=== PATIENT | female | born 1980 | race American Indian/Alaskan Native ===

== ENCOUNTER 2018-01-04 09:08 | Inpatient (IN) | payer MEDICAID ==
[2018-01-04] MEDS ORDERED: PEPCID IV NR (09:40)
[2018-01-04] MEDS ORDERED: BICITRA PO NR (09:40)
[2018-01-04] MEDS ORDERED: REGLAN IV ONE (09:40)
[2018-01-04] MEDS ORDERED: ANCEF/STERILE WATER 2 GM/20 ML 2 GM/20 ML SYRINGE IV ONE ×2 (09:45→10:01)
[2018-01-04] MEDS ORDERED: SUBLIMAZE ONE (10:00)
[2018-01-04] MEDS ORDERED: PITOCin/NS 20 UNIT/1000ML DRIP 20 UNITS/1,000 ML BAG IV SCH ×2 (10:00→14:44)
[2018-01-04] MEDS: LACTATED RINGERS 1,000 ML IV SCH ×2 (10:05→10:35)
[2018-01-04 10:19] LABS: Basophils % (Auto) 0.4 % (0.0-1.8); Eosinophils % (Auto) 0.6 % (0.0-4.3); Hemoglobin 12.3 gm/dl (10.1-14.3); Lymphocytes # (Auto) 1.9 K/mm3 (1.2-5.4); Lymphocytes % (Auto) 34.4 % (13.4-35.0); Mean Corpuscular HGB Conc 35 % (30-34); Mean Corpuscular Hemoglobin 34 pg (28-32); Mean Corpuscular Volume 97 fl (79-97); Monocytes # (Auto) 0.3 K/mm3 (0.0-0.8); Monocytes % (Auto) 5.3 % (0.0-7.3); Platelet Count 108 K/mm3 (140-440); Red Blood Count 3.63 M/mm3 (3.65-5.03); Red Cell Distribution Width 14.1 % (13.2-15.2)
[2018-01-04] MEDS ORDERED: BENADRYL ONE (10:20)
--- NOTE | 2018-01-04 10:25 | History and Physical Report ---
<JAKE BUNCH Norris - Last Filed: 01/04/18 10:21> History of Present Illness Date of examination: 01/04/18 Date of admission: 01/04/18 09:09 Chief complaint: labor contractions @ 38+3 wks, no srom or vag bleeding. Scheduled repeat c/s History of present illness: EDC Calculations LMP: 01/15/2018 Past History : 5 Term Births: 2 Premature Births: 0 Living Children: 2 Para: 2 Mult. Births: 0 Prev : 2 Prev. attempt? 0 Aborta: 2 Elect. Ab: 1 Spont. 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 of genital herpes: yes Varicella/Chicken Pox Status: Previous Disease TB Risk: no Genetic History ADVANCED MATERNAL AGE Congenital Heart Defect: Mom: no Dad: no Gwen Disease: Mom: no Dad: no Thalassemia Mom: no Dad: no Neural Tube Defect Mom: no Dad: no Down's Syndrome Mom: no Dad: no Nicolas-Sachs Mom: no Dad: no Sickle Cell Disease/Trait Mom: no Dad: no Hemophilia Mom: no Dad: no Muscular Dystrophy Mom: no Dad: no Cystic Fibrosis Mom: no Dad: no Bridget Chorea Mom: no Dad: no Mental Retardation Mom: no Dad: no Fragile X Mom: no Dad: no Other Genetic/Chromosomal Disorder Mom: no Dad: no Child w/other defect Mom: no Dad: no Enviromental Exposures Xray Exposure: no Medication, drug, or alcohol use since LMP: no Chemical/Other Exposure: no Exposure to Cat Liter: no Hx of Parvovirus (Fifth Disease): no Occupational Exposure to Children: none Active Medications (reviewed today): None Current Allergies (reviewed today): No known allergies Past History Past Medical History: other (see HPI) Past Surgical History: other (see HPI) - Obstetrical History Expected Date of Delivery: 01/15/18 Actual Gestation: 38 Week(s) 3 Day(s) : 5 Para: 2 Hx # Term Pregnancies: 2 Number of Pregnancies: 0 Spontaneous Abortions: 1 Induced : 1 Number of Living Children: 2 Medications and Allergies Allergies Allergy/AdvReac Type Severity Reaction Status Date / Time No Known Allergies Allergy Unverified 01/04/18 09:23 Home Medications Medication Instructions Recorded Confirmed Last Taken Type No Known Home Medications [No 01/04/18 01/04/18 Unknown History Reported Home Medications] Active Meds: Active Medications Citric Acid/Sodium Citrate (Bicitra) 30 ml PO ONCE NR Stop: 01/04/18 10:30 Famotidine (Pepcid) 20 mg IV ONCE NR Stop: 01/04/18 10:30 Lactated Ringer's (Lactated Ringers) 1,000 mls @ 2,250 mls/hr IV PREOP ROD Stop: 01/05/18 10:27 Oxytocin/Sodium Chloride (Pitocin/Ns 20 Unit/1000ml Drip) 20 units in 1,000 mls @ 0 mls/hr IV TITR ROD PRN Reason: As Directed Review of Systems All systems: negative - Vital Signs Vital signs: Vital Signs Pulse BP 99 H 114/78 01/04/18 09:30 01/04/18 09:30 Temp Pulse Resp BP Pulse Ox 99 H 114/78 01/04/18 09:30 01/04/18 09:30 Results Result Diagrams: 01/04/18 09:50 Abnormal lab results 01/04/18 Range/Units 09:50 RBC 3.63 L (3.65-5.03) M/mm3 MCH 34 H (28-32) pg MCHC 35 H (30-34) % Plt Count 108 L (140-440) K/mm3 All other labs normal. Assessment and Plan 37y/o @ 38+3 weeks, active labor 5cms with regular ctx, prev c/s x 2. Plan to proceed with repeat c/s and tubal. Consent on the chart. Admission orders in EMR. Dr. Jaffe aware and in house. - Patient Problems (1) 38 weeks gestation of Current Visit: Yes Status: Acute (2) Previous section Current Visit: Yes Status: Acute (3) Active labor at term Current Visit: Yes Status: Acute <ROSALVA JAFFE D - Last Filed: 01/04/18 10:28> History of Present Illness Date of admission: 01/04/18 09:09 Medications and Allergies Active Meds: Active Medications Citric Acid/Sodium Citrate (Bicitra) 30 ml PO ONCE NR Stop: 01/04/18 10:30 Famotidine (Pepcid) 20 mg IV ONCE NR Stop: 01/04/18 10:30 Lactated Ringer's (Lactated Ringers) 1,000 mls @ 2,250 mls/hr IV PREOP ROD Stop: 01/05/18 10:27 Oxytocin/Sodium Chloride (Pitocin/Ns 20 Unit/1000ml Drip) 20 units in 1,000 mls @ 0 mls/hr IV TITR ROD PRN Reason: As Directed - Vital Signs Vital signs: Vital Signs Pulse BP 99 H 114/78 01/04/18 09:30 01/04/18 09:30 Temp Pulse Resp BP Pulse Ox 99 H 114/78 01/04/18 09:30 01/04/18 09:30 Results Result Diagrams: 01/04/18 09:50 Abnormal lab results 01/04/18 Range/Units 09:50 RBC 3.63 L (3.65-5.03) M/mm3 MCH 34 H (28-32) pg MCHC 35 H (30-34) % Plt Count 108 L (140-440) K/mm3 All other labs normal. Assessment and Plan Patient presents active labor, 5cm, breech, previous C/S x2 scheduled for repeat C/S with sterilization on Jan 08. Breech presentation by exam. Patient will proceed with c/s delchelsey with possible bilateral salpingectomy for sterilization. Questions answered. Consents reviewed and signed. She voiced understanding as well.
[2018-01-04] MEDS ORDERED: XYLOCAINE MPF 2% ONE ×8 (10:42→10:47)
[2018-01-04] MEDS ORDERED: WATER FOR IRRIG STERILE IR ONE (10:50)
[2018-01-04] MEDS ORDERED: NACL 0.9% IR ONE (10:50)
[2018-01-04] MEDS ORDERED: NEO SYNEPHRINE/NS Syringe(OR USE) IV ONE ×3 (10:55→12:04)
[2018-01-04] MEDS ORDERED: NEO SYNEPHRINE ONE (11:08)
[2018-01-04] MEDS ORDERED: LACTATED RINGERS 1,000 ML ONE (11:37)
--- NOTE | 2018-01-04 12:13 | Operative Report ---
Operative Report Operative Report: Date: 01/04/2018 Preoperative diagnosis: 1. Intrauterine at 38 weeks 2. Active labor 3. Previous delivery 2 4. Desires sterilization 5. Advanced maternal age 6. Breech presentation Postoperative diagnosis: 1. Intrauterine at 38 weeks 2. Active labor 3. Previous delivery 2 4. Desires sterilization 5. Advanced maternal age 6. Breech presentation Procedure: 1. Low transverse section 2. Bilateral salpingectomy for sterilization Surgeon: Julissa Jaffe MD Supervisor Aircraft Cleaning: Symone Jacobo [facility] Anesthesia: Epidural Anesthesiologist: Dr. Kinney Estimated blood loss: 700 mL Urine out: 200 mL Findings: Live born male . Weight 7 pounds 2 oz. Apgars 7 at 1 minute and 9 at 5 minutes. Grossly enlarged uterus, grossly normal tubes and ovaries Procedure: After risk, benefits, complications, consequences and alternatives for th procedure were discussed with patient and consents were reviewed and signed, she was taken to the OR where epidural anesthesia was placed. She was then placed in the left lateral tilt position, and prepped and draped in the usual sterile fashion. Timeout was performed, and an appropriate level of anesthesia was noted, a Pfannenstiel incision was made and extended to the fascia which was incised and extended in the lateral directions. The overlying fascia was sharply dissected away from the underlying rectus muscles in the superior and inferior directions. The midline was entered with blunt and sharp dissection. The vesicouterine fold was incised and with blunt dissection the bladder flap was created. A transverse incision was made in the lower uterine segment and extended in superiolateral direction with finger fractionation. Clear fluid was noted. The infant was delivered from double footling breech position. Mouth and nose were bulb suctioned. Spontaneous cry and excellent tone were noted. Cord was doubly clamped and cut. The was given to /resuscitation team present. The placenta was manually extracted. The uterus was then exteriorized and cleared of any further products of conception or placental tissue. The incision was reapproximated using 0 Vicryl in a running interlocking stitch. Once confirmation was obtained from the patient proceed with sterilization, bilateral salpingectomy was performed using the Bovie. Once hemostasis is noted the same procedure was performed on the left tube. Tisseel was applied to the adnexa to ensure hemostasis. Each fallopian tube was sent to pathology in separate containers. Once hemostasis was noted, the uterus was allowed back into the pelvic cavity. The pelvis was irrigated with warm normal saline. Attention was turned to the adnexa where hemostasis was noted. Tisseel as well as Surgicel was applied to the uterine incision for further hemostasis. Interceed was then placed to prevent adhesions. Then attention was turned to the rectus muscles. Once hemostasis was noted, the fascia was reapproximated using 0 Vicryl and some running stitch. Once hemostasis was noted skin incision was reapproximated using 4-0 Vicryl on a Saw needle in a subcuticular manner. Counts were correct 3. Patient tolerated procedure well state recovery room in stable condition.
--- NOTE | 2018-01-04 12:13 | Anesthesia Consultation ---
Anesthesia Consult and Med Hx Date of service: 01/04/18 - Airway Anesthetic Teeth Evaluation: Good ROM Head & Neck: Adequate Mental/Hyoid Distance: Adequate Mallampati Class: Class I Intubation Access Assessment: Good - Pulmonary Exam CTA: Yes - Cardiac Exam Cardiac Exam: RRR - Pre-Operative Health Status ASA Pre-Surgery Classification: ASA1, Emergency Proposed Anesthetic Plan: Epidural, Spinal - Pulmonary Hx Asthma: No - Cardiovascular System Hx Hypertension: No - Central Nervous System Hx Seizures: No Hx Psychiatric Problems: No - Endocrine Hx Renal Disease: No Hx Hypothyroidism: No Hx Hyperthyroidism: No - Hematic Hx Anemia: No Hx Sickle Cell Disease: No - Other Systems Hx Alcohol Use: No
[2018-01-04] MEDS ORDERED: TORADOL ONE (12:46)
[2018-01-04] MEDS ORDERED: ZOFRAN IV PRN ×2 (13:26→14:44)
[2018-01-04] MEDS ORDERED: PHENERGAN PO PRN (13:26)
[2018-01-04] MEDS ORDERED: PHENERGAN PR PRN ×2 (13:26→14:44)
[2018-01-04] MEDS ORDERED: NARCAN 0.4 MG/1 ML IV PRN ×2 (13:26→14:44)
[2018-01-04] MEDS: MORPHINE IV PRN ×3 (13:38→18:33)
[2018-01-04] MEDS ORDERED: SODIUM CHLORIDE FLUSH SYRINGE 10 ML IV SCH ×2 (14:00→14:44)
[2018-01-04] MEDS ORDERED: fentaNYL-BUPIV 2 MCG/ML-0.125% 200 MCG/100 ML BAG EPIDURAL SCH (14:30)
[2018-01-04] MEDS ORDERED: MORPHINE IV PRN ×2 (14:44→18:17)
[2018-01-04] MEDS ORDERED: LANSINOH TP PRN (14:44)
[2018-01-04] MEDS ORDERED: TYLENOL PR PRN (14:44)
[2018-01-04] MEDS ORDERED: TUCKS PAD TP PRN (14:44)
[2018-01-04] MEDS ORDERED: ANCEF/NS 1 GM/50 ML 1 GM/50 ML BAG IV SCH (14:44)
[2018-01-04] MEDS ORDERED: CYTOTEC PR PRN (14:44)
[2018-01-04] MEDS ORDERED: TYLENOL PO PRN (14:44)
[2018-01-04] MEDS ORDERED: METHERGINE IM PRN (14:44)
[2018-01-04] MEDS ORDERED: HEMABATE IM PRN (14:44)
[2018-01-04] MEDS ORDERED: MYLICON PO PRN (14:44)
[2018-01-04] MEDS: D5LR 1,000 ML IV SCH (15:43)
[2018-01-04] MEDS ORDERED: DILAUDID IV PRN (17:02)
[2018-01-04] MEDS: ceFAZolin 1 GM in NACL 0.9% 20 ML IV SCH (17:40)
[2018-01-04] MEDS: TORADOL IV PRN (18:10)
[2018-01-04] MEDS ORDERED: MORPHINE IV ONE (18:19)
[2018-01-04] MEDS ORDERED: NUBAIN IV ONE (19:40)
[2018-01-04 22:46] LABS: Hematocrit 25.3 % (30.3-42.9); Hemoglobin 8.7 gm/dl (10.1-14.3)
[2018-01-05] MEDS: D5LR 1,000 ML IV SCH (02:00)
[2018-01-05] MEDS: MORPHINE IV PRN ×2 (02:58→08:09)
[2018-01-05] MEDS: MILK OF MAGNESIA PO PRN (03:15)
[2018-01-05] MEDS: ceFAZolin 1 GM in NACL 0.9% 20 ML IV SCH (03:15)
[2018-01-05] MEDS: TORADOL IV PRN ×2 (03:37→12:05)
[2018-01-05] MEDS ORDERED: BOOSTRIX IM ONE (06:00)
--- NOTE | 2018-01-05 08:41 | Progress Note ---
Assessment and Plan - Patient Problems (1) Delivered by section Current Visit: Yes Status: Acute Plan to address problem: -routine pp/post op care -con't ambulation -ADAT today (2) Encounter for sterilization Current Visit: Yes Status: Acute (3) Anemia Current Visit: Yes Status: Acute Qualifiers: Anemia type: other cause Subjective - Subjective Date of service: 01/05/18 Principal diagnosis: POD #1 S/P RLTCS WITH BTL Interval history: PT doing well this am. Initially she had some issues with pain being managed and getting comfortable with medications that were given. She now states she feels better and the pain is better controlled. She is breast feeding. She is ambulation and s/p flatus. She request to have regular diet this am. Patient reports: appetite normal, voiding normally, pain well controlled, flatus , ambulating normally : doing well, nursing well Objective - Vital Signs Latest vital signs: Vital Signs Temp Pulse Resp BP BP Pulse Ox 01/05/18 05:25 98.0 F 81 18 104/68 98 01/05/18 04:07 18 01/05/18 03:37 18 01/05/18 03:28 18 01/05/18 00:00 97.9 F 76 18 103/72 98 01/04/18 23:41 18 01/04/18 23:11 18 01/04/18 20:50 97.8 F 68 18 100/71 98 01/04/18 19:44 18 01/04/18 16:49 97.6 F 66 18 122/70 100 01/04/18 13:03 63 13 143/85 100 01/04/18 12:48 97.8 F 62 13 135/84 100 01/04/18 12:33 64 18 130/82 100 01/04/18 12:18 62 15 139/93 100 01/04/18 12:13 73 15 135/86 100 01/04/18 12:08 74 13 127/80 100 01/04/18 12:03 97.6 F 69 13 115/73 100 01/04/18 09:30 99 H 114/78 Intake and Output 01/04/18 01/05/18 01/05/18 22:59 06:59 14:59 Intake Total 840 1240 Output Total 250 900 Balance 590 340 Intake: IV 1000 D5lr 1,000 ml @ 125 mls/ 1000 hr IV DIRECT ROD Rx#: [id number] Oral 120 240 Intake, Free Water 720 Output: Urine 250 900 Indwelling Catheter 250 600 Void 300 Other: Total, Intake Amount 120 120 Total, Output Amount 250 300 - Exam Breasts: Present: normal Lungs: Present: Clear to auscultation, Normal air movement Abdomen: Present: normal appearance, soft. Absent: distention, tenderness, guarding Uterus: Present: normal, firm, fundal height below umbilicus. Absent: tenderness Extremities: Present: normal. Absent: tenderness, edema Deep Tendon Reflex Grade: Normal +2 Incision: Present: normal, dry, intact, dressed - Labs Labs: Abnormal lab results 01/04/18 01/04/18 Range/Units 09:50 22:28 RBC 3.63 L (3.65-5.03) M/mm3 Hgb 8.7 L D (10.1-14.3) gm/dl Hct 25.3 L D (30.3-42.9) % MCH 34 H (28-32) pg MCHC 35 H (30-34) % Plt Count 108 L (140-440) K/mm3
[2018-01-05] MEDS ORDERED: Fluarix Quad 2017-2018(36 MOS+ IM ONE (12:00)
[2018-01-05] MEDS: FEOSOL PO SCH ×2 (12:05→21:17)
[2018-01-05] MEDS: MOTRIN PO PRN (18:50)
[2018-01-05] MEDS: PERCOCET 5/325 PO PRN (21:17)
[2018-01-06] MEDS: PERCOCET 5/325 PO PRN ×3 (04:26→18:43)
--- NOTE | 2018-01-06 07:55 | Progress Note ---
Assessment and Plan Patient doing well, no complaints. reports pain well managed by PO meds. VSSAF , H&H decreased from admission to 8.7/25.3, acute anemia from blood loss - asymptomatic. Incision D&I, lochia scant. Continue postop pathway and anticipate d/c home tomorrow. - Patient Problems (1) Delivered by section Current Visit: Yes Status: Acute (2) Anemia Current Visit: Yes Status: Acute Qualifiers: Anemia type: other cause Plan to address problem: acute anemia from blood loss FE supplementation asymptomatic Subjective - Subjective Date of service: 01/06/18 Principal diagnosis: POD #2 S/P RLTCS WITH BTL Interval history: EDC Calculations LMP: 01/15/2018 Past History : 5 Term Births: 2 Premature Births: 0 Living Children: 2 Para: 2 Mult. Births: 0 Prev : 2 Prev. attempt? 0 Aborta: 2 Elect. Ab: 1 Spont. 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 of genital herpes: yes Varicella/Chicken Pox Status: Previous Disease TB Risk: no Genetic History ADVANCED MATERNAL AGE Congenital Heart Defect: Mom: no Dad: no Gwen Disease: Mom: no Dad: no Thalassemia Mom: no Dad: no Neural Tube Defect Mom: no Dad: no Down's Syndrome Mom: no Dad: no Nicolas-Sachs Mom: no Dad: no Sickle Cell Disease/Trait Mom: no Dad: no Hemophilia Mom: no Dad: no Muscular Dystrophy Mom: no Dad: no Cystic Fibrosis Mom: no Dad: no [place] Chorea Mom: no Dad: no Mental Retardation Mom: no Dad: no Fragile X Mom: no Dad: no Other Genetic/Chromosomal Disorder Mom: no Dad: no Child w/other defect Mom: no Dad: no Enviromental Exposures Xray Exposure: no Medication, drug, or alcohol use since LMP: no Chemical/Other Exposure: no Exposure to Cat Liter: no Hx of Parvovirus (Fifth Disease): no Occupational Exposure to Children: none Active Medications (reviewed today): None Current Allergies (reviewed today): No known allergies Patient reports: appetite normal, voiding normally, pain well controlled, flatus , ambulating normally, no dizzy ambulation, no nauseated [place]: doing well, nursing well Objective - Vital Signs Latest vital signs: Vital Signs Temp Pulse Resp BP Pulse Ox 01/06/18 00:40 97.9 F 99 H 18 98 01/05/18 13:45 98.2 F 103 H 18 126/74 100 01/05/18 13:40 97 H 100 Intake and Output 01/05/18 01/05/18 01/06/18 15:59 23:59 07:59 Intake Total 360 360 Output Total 400 400 Balance -400 -40 360 Intake: Oral 360 360 Output: Urine 400 400 Void 400 400 Other: Total, Intake Amount 360 120 Total, Output Amount 400 400 # Voids Void 1 3 1 - Exam Breasts: Present: normal, Cardiovascular: Present: Regular rate Lungs: Present: Clear to auscultation, Normal air movement Abdomen: Present: normal appearance, soft Vulva: both: normal Uterus: Present: normal, firm, fundal height at umbilicus Extremities: Present: normal Incision: Present: normal, dry, intact
[2018-01-06] MEDS: MOTRIN PO PRN ×2 (09:30→18:43)
[2018-01-06] MEDS: COLACE PO SCH ×2 (10:42→21:32)
[2018-01-06] MEDS: FEOSOL PO SCH ×2 (10:43→21:32)
[2018-01-06] MEDS: MILK OF MAGNESIA PO PRN (18:44)
[2018-01-06] MEDS ORDERED: DULCOLAX PR PRN (20:55)
[2018-01-07] MEDS: PERCOCET 5/325 PO PRN ×2 (04:55→12:34)
[2018-01-07] MEDS: MOTRIN PO PRN ×2 (04:56→12:34)
--- NOTE | 2018-01-07 06:25 | Discharge Summary ---
Providers - Providers Date of Admission: 01/04/18 09:09 Date of discharge: 01/07/18 (pt desires d/c) Attending physician: ROSALVA MALCOLM 01/04/18 14:44 Consult to Commercial Energy Auditor [CONS] Routine Reason For Exam: Primary care physician: ROSALVA MALCOLM Hospitalization Reason for admission: active labor Delivery: Procedure: bilateral tubal ligation, repeat low transverse Episiotomy: none Laceration: none Incision: normal, dry, intact Other procedures: none complications: none Discharge diagnosis: IUP at term delivered [place] baby: male Hospital course: uncomplicated repeat section with tubal ligation Pt resting w/o c/o pain VSS FF below umb Lochia scant Incision D&I Pt remains asymptomatic anemia RX po iron for @ home. Doing well s/p c/s P: d/c today with instructions RTO 1 week post and circ. Condition at discharge: Good Disposition: DC-01 TO HOME OR SELFCARE - Discharge Diagnoses (1) Delivered by section Status: Acute Comment: RTO one week post op visit Plan - Discharge Medications Prescriptions: Docusate Sodium [Colace] 100 mg PO BID PRN #60 capsule PRN Reason: Constipation Ferrous Sulfate [Feosol 325 MG tab] 325 mg PO BID #60 tablet Ibuprofen [Motrin 800 MG tab] 800 mg PO TID PRN #30 tablet PRN Reason: Pain Lidocain2.5%/Prilocai2.5% [Emla] 5 gm TP ONCE #1 tube oxyCODONE /ACETAMINOPHEN [Percocet 5/325 mg] 1 - 2 tab PO Q4HR PRN #30 tablet PRN Reason: Pain - Provider Discharge Summary Activity: routine, no sex for 6 weeks, no heavy lifting 4 weeks, no strenuous exercise Diet: routine Instructions: routine Additional instructions: [] Smoking cessation referral if applicable(refer to patient education folder for contact #) [] Refer to [facility] Booklet Call your doctor immediately for: * Fever > 100.5 * Heavy vaginal bleeding ( >1 pad per hour) * Severe persistent headache * Shortness of breath * Reddened, hot, painful area to leg or breast * Drainage or odor from incision. * Keep incision clean and dry at all times and follow doctor's instructions regarding bathing/showering - Follow up plan Follow up: ROSALVA MALCOLM MD [Primary Care Provider] - 7 Days (Congratulations! Please call [phone] to schedule your postoperative visit and your son's circumcision in 1 week. Bring the EMLA cream with you to his visit. Do NOT use at home. Take medications as prescribed. Call with concerns.)
[2018-01-07 14:32] VITALS: BP 127/71
== END 2018-01-07 13:00 | disposition home or self-care (01) | DRG 765 ==
LOC: TRG 09:08 → APU 09:09 → OB 13:39
PROVIDERS: ADMIT Obstetrics & Gynecology; ATTEND Obstetrics & Gynecology
PROC: 10D00Z1 Extraction of Products of Conception, Low, Open Approach (ICD-10-PCS; principal; 2018-01-04)
PROC: 0UT70ZZ Resection of Bilateral Fallopian Tubes, Open Approach (ICD-10-PCS; 2018-01-04)
PROC: 3E0234Z Introduction of Serum, Toxoid and Vaccine into Muscle, Percutaneous Approach (ICD-10-PCS; 2018-01-05)
DX: O34.211 Maternal care for low transverse scar from previous cesarean delivery (principal); D62 Acute posthemorrhagic anemia; O99.03 Anemia complicating the puerperium; O32.1XX0 Maternal care for breech presentation, not applicable or unspecified; Z30.2 Encounter for sterilization; Z3A.38 38 weeks gestation of pregnancy; Z37.0 Single live birth; Z82.49 Family history of ischemic heart disease and other diseases of the circulatory system; Z23 Encounter for immunization
CPT/HCPCS: 36415; 85014; 85018; 85025; 86850; 86900; 86901; 88302; 90471; 90686; 90715; 99211; A6250; C1765; C9250; G0463; J0690; J1170; J1200; J1885; J2270; J2300; J2370; J2405; J2590; J3010; J7120; J7121; Q0169